=== PATIENT | female | born 1970 | race Caucasian/White ===

== ENCOUNTER 2018-06-30 08:16 | Emergency (ER) | payer BC ==
[~2018-06-30] VITALS: Ht 172.7 cm; Wt 90.7 kg
[2018-06-30] MEDS ORDERED: PROZAC10 MG PO (08:27)
[2018-06-30] MEDS ORDERED: NORCO 5-325 TA1 EACH PO (09:33)
[2018-06-30 09:43] VITALS: BP 123/87
== END 2018-06-30 09:44 | disposition home or self-care (01) ==
LOC: M.ERS 08:16
DX: S23.41XA Sprain of ribs, initial encounter (principal); F32.9 Major depressive disorder, single episode, unspecified; F41.9 Anxiety disorder, unspecified; X58.XXXA Exposure to other specified factors, initial encounter; Y93.89 Activity, other specified; Y92.89 Other specified places as the place of occurrence of the external cause; Y99.8 Other external cause status